=== PATIENT | female | born 1985 | race Asian ===

== ENCOUNTER 2018-06-23 14:26 | Emergency (ER) | payer BC ==
[2018-06-23] MEDS ORDERED: Potassium Chloride 20 MEQ Tab.ER PO ONE (15:06)
--- NOTE | 2018-06-23 15:09 | EDM.PDOC ---
ED HPI GENERAL MEDICAL PROBLEM - General Chief Complaint: Cardiovascular Problem Stated Complaint: LOW POTASSIUM Time Seen by Provider: 06/23/18 14:35 Source of Information: Reports: Patient History Limitations: Reports: No Limitations - History of Present Illness INITIAL COMMENTS - FREE TEXT/NARRATIVE: 33 yo F referred by [employer] after getting PET scan and labs s/p thyroidectomy (05/03/18) and was found to be hypokalemic with K 2.8. She currently has no symptoms. She has never had this before and is not sure what caused this. She is eating and drinking OK, no changes in diet, denies any F/C, N/V/D. She does c/o of some light-headedness, but has had this for months. She also states she has occasional dull 2/10 chest pain in the mornings d/t her Levothyroxine being increased from 50 to 150 on 06/12/18. No other new medication changes, no diuretics. Last normal BM was this AM. - Related Data Allergies Allergy/AdvReac Type Severity Reaction Status Date / Time No Known Allergies Allergy Verified 06/23/18 14:36 Home Meds: Home Meds Calcitriol 0.5 mcg PO DAILY 06/23/18 [History] Calcium Carbonate [Tums] 50 mg PO TID 06/23/18 [History] Levothyroxine 150 mcg PO ACBREAKFAST 06/23/18 [History] Magnesium Chloride [Slow-Mag] 71.5 mg PO BID 7 Days #14 tablet.dr 06/23/18 [Rx] Potassium Chloride [Klor-Con M20] 40 meq PO BID #22 tab.er 06/23/18 [Rx] amLODIPine Besylate [Amlodipine Besylate] 10 mg PO DAILY 06/23/18 [History] Past Medical History - Past Health History Medical/Surgical History: Denies Medical/Surgical History HEENT History: Reports: Impaired Vision Cardiovascular History: Reports: Hypertension Respiratory History: Reports: None Gastrointestinal History: Reports: None Genitourinary History: Reports: None [employer] AGENT History: Reports: None Musculoskeletal History: Reports: None Neurological History: Reports: None Psychiatric History: Reports: None Endocrine/Metabolic History: Reports: Hyperthyroidism Hematologic History: Reports: None Immunologic History: Reports: None Oncologic (Cancer) History: Reports: Thyroid Dermatologic History: Reports: None - Infectious Disease History Infectious Disease History: Reports: None - Past Surgical History HEENT Surgical History: Reports: Oral Surgery Social & Family History - Family History Family Medical History: Unobtainable - Tobacco Use Smoking Status *Q: Never Smoker - Caffeine Use Caffeine Use: Reports: Soda - Recreational Drug Use Recreational Drug Use: No ED ROS GENERAL - Review of Systems Review Of Systems: See Below Constitutional: Reports: No Symptoms. Denies: Fever, Chills HEENT: Reports: Contact Lenses Respiratory: Reports: No Symptoms Cardiovascular: Reports: Chest Pain (2/10 dull in the AM, has had in the past with levothyroxine, recent increased dose), Lightheadedness (chronic for months now). Denies: Palpitations Endocrine: Reports: No Symptoms GI/Abdominal: Reports: No Symptoms. Denies: Abdominal Pain, Diarrhea, Nausea, Vomiting : Reports: No Symptoms Musculoskeletal: Reports: No Symptoms Skin: Reports: No Symptoms Neurological: Reports: No Symptoms. Denies: Confusion, Dizziness, Numbness, Paresthesia, Tingling, Trouble Speaking, Gait Disturbance Psychiatric: Reports: No Symptoms ED EXAM, GENERAL - Physical Exam Exam: See Below Exam Limited By: No Limitations General Appearance: Alert, WD/WN, No Apparent Distress Eye Exam: Bilateral Eye: EOMI, Normal Inspection, PERRL Ears: Normal External Exam, Hearing Grossly Normal Nose: Normal Inspection, Normal Mucosa, No Blood Throat/Mouth: Normal Inspection, Normal Lips, Normal Teeth, Normal Gums, Normal Oropharynx, Normal Voice, No Airway Compromise Head: Atraumatic, Normocephalic Neck: Normal Inspection, Supple, Non-Tender, Full Range of Motion Respiratory/Chest: No Respiratory Distress, Lungs Clear, Normal Breath Sounds, No Accessory Muscle Use, Chest Non-Tender Cardiovascular: Normal Peripheral Pulses, No Edema, No Gallop, No JVD, No Murmur , No Rub, Tachycardia GI/Abdominal: Normal Bowel Sounds, Soft, Non-Tender, No Organomegaly, No Distention, No Abnormal Bruit, No Mass Extremities: Normal Inspection, Normal Range of Motion, Non-Tender, Normal Capillary Refill, No Pedal Edema Neurological: Alert, Oriented, CN II-XII Intact, Normal Cognition, Normal Gait, Normal Reflexes, No Motor/Sensory Deficits Psychiatric: Normal Affect, Normal Mood Skin Exam: Warm, Dry, Intact, Normal Color, No Rash EKG INTERPRETATION EKG Date: 06/23/18 Time: 14:48 Rhythm: NSR Rate (Beats/Min): 97 [place]: Normal P-Wave: Present QRS: Normal ST-T: Normal Comparison: NA - No Prior EKG EKG Interpretation Comments: NSR @ 97bpm, Q wave V1 and near Q wave V2, decreased voltage limb leads, QTc minimally prolonged. Course - Vital Signs Last Recorded V/S: Last Vital Signs Temp 97.9 F 06/23/18 14:52 Pulse 106 H 06/23/18 14:52 Resp 16 06/23/18 14:52 BP 141/108 H 06/23/18 14:52 Pulse Ox 100 06/23/18 14:52 - Orders/Labs/Meds Orders: Active Orders 24 hr Category Date Time Status EKG Documentation Completion [RC] ASDIRECTED Care 06/23/18 14:42 Active EKG 12 Lead [EK] Stat Ther 06/23/18 14:42 Ordered Labs: Laboratory Tests 06/23/18 06/23/18 Range/Units 15:00 15:00 WBC 5.47 (3.98-10.04) K/mm3 RBC 4.26 (3.98-5.22) M/mm3 Hgb 12.3 (11.2-15.7) gm/L Hct 35.5 (34.1-44.9) % MCV 83.3 (79.4-94.8) fl MCH 28.9 (25.6-32.2) pg MCHC 34.6 (32.2-35.5) g/dl RDW Std Deviation 39.8 (36.4-46.3) fL Plt Count 218 (182-369) K/mm3 MPV 9.6 (9.4-12.3) fl Neut % (Auto) 68.4 (34.0-71.1) % Lymph % (Auto) 17.6 L (19.3-51.7) % [place] % (Auto) 11.3 (4.7-12.5) % Eos % (Auto) 2.0 (0.7-5.8) Baso % (Auto) 0.5 (0.1-1.2) % Neut # (Auto) 3.74 (1.56-6.13) K/mm3 Lymph # (Auto) 0.96 L (1.18-3.74) K/mm3 [place] # (Auto) 0.62 H (0.24-0.36) K/mm3 Eos # (Auto) 0.11 (0.04-0.36) K/mm3 Baso # (Auto) 0.03 (0.01-0.08) K/mm3 Sodium 140 (136-145) mEq/L Potassium 2.8 L (3.5-5.1) mEq/L Chloride 101 (98-107) mEq/L Carbon Dioxide 26 (21-32) mEq/L Anion Gap 15.8 H (5-15) BUN 19 H (7-18) mg/dL Creatinine 1.1 H (0.55-1.02) mg/dL Est Cr Clr Drug Dosing TNP Estimated GFR (MDRD) 58 (>60) mL/min BUN/Creatinine Ratio 17.3 (14-18) Glucose 105 (74-106) mg/dL Calcium 9.3 (8.5-10.1) mg/dL Magnesium 1.5 L (1.8-2.4) mg/dl Total Bilirubin 0.3 (0.2-1.0) mg/dL AST 19 (15-37) U/L ALT 20 (14-59) U/L Alkaline Phosphatase 48 (46-116) U/L Total Protein 8.2 (6.4-8.2) g/dl Albumin 4.3 (3.4-5.0) g/dl Globulin 3.9 gm/dL Albumin/Globulin Ratio 1.1 (1-2) Meds: Medications Discontinued Medications Generic Name Dose Route Start Last Admin Trade Name Freq PRN Reason Stop Dose Admin Magnesium Oxide 400 mg 06/23/18 16:02 Magnesium Oxide PO 06/23/18 16:03 ONETIME ONE Potassium Chloride 40 meq 06/23/18 15:06 06/23/18 15:22 Klor-Con M20 PO 06/23/18 15:07 40 meq ONETIME ONE Administration - Re-Assessments/Exams Free Text/Narrative Re-Assessment/Exam: 06/23/18 14:42 Per [employer], K 2.8. CBC, CMP, Magnesium ordered 06/23/18 15:[address] Peoples and myself: NSR @ 97bpm, Q wave V1 and near Q wave V2, decreased voltage limb leads, QTc minimally prolonged. Will give 40mcg Potassium PO here. Recommend 40 BID x 2 days, followed by 40 Qdaily until recheck in 1 week. 06/23/18 16:04 CBC WNL CMP shows K 2.8, AnionGap 15.8, BUN 19, Cr 1.1, Mag 1.5 Will also send home with Magnesium supplement BID Departure - Departure Time of Disposition: 16:05 Disposition: Home, Self-Care 01 Condition: Good Clinical Impression: Hypokalemia, Hypomagnesemia Prescriptions: Magnesium Chloride [Slow-Mag] 71.5 mg PO BID 7 Days #14 tablet. Potassium Chloride [Klor-Con M20] 40 meq PO BID #22 tab.er Instructions: Hypomagnesemia, Hypokalemia, Potassium Content of Foods Referrals: Gayatri Sandoval, [employer] [Primary Care Provider] - Forms: ED Department Discharge Additional Instructions: You were seen in the ED today for low potassium and magnesium. You had labs and an EKG done while here and given 1 dose of potassium here. You will be prescribed potassium and magnesium to take at home. Take Potassium 40meq twice per day for 2 days then 40meq once per day for one week. Magnesium 71.5mg twice per day for 1 week. You will need to get your labs re-checked in 1 week, as you may need a longer prescription for both. Recommend the follow up be with your primary care physician as this may be a longer treatment that needs to be followed. Please return to ED if new or worsening symptoms, such as muscle weakness and palpitations. - My Orders Last 24 Hours: My Active Orders 06/23/18 14:42 EKG Documentation Completion [RC] ASDIRECTED EKG 12 Lead [EK] Stat - Assessment/Plan Last 24 Hours: My Active Orders 06/23/18 14:42 EKG Documentation Completion [RC] ASDIRECTED EKG 12 Lead [EK] Stat
[2018-06-23] MEDS ORDERED: Magnesium Oxide 400 MG Tab PO ONE (16:02)
== END 2018-06-23 16:34 | disposition home or self-care (01) ==
LOC: JD.ED 14:26
DX: E87.6 Hypokalemia (principal); E83.42 Hypomagnesemia; E05.90 Thyrotoxicosis, unspecified without thyrotoxic crisis or storm; Z79.899 Other long term (current) drug therapy
CPT/HCPCS: 36415; 80053; 83735; 85025; 93005; 99285; A9270; 93010; 99283